=== PATIENT | male | born 1940 | race Caucasian/White ===

== ENCOUNTER → 2023-10-28 08:38 | Outpatient (REF) | payer OTHER, SELFPAY | LOC: RAD 08:38 | PROVIDERS: ATTENDING PHYSICIAN Specialist; FAMILY PHYSICIAN Internal Medicine | DX: M25.512 Pain in left shoulder (principal); M75.32 Calcific tendinitis of left shoulder; M75.42 Impingement syndrome of left shoulder | CPT/HCPCS: 76882 ==

== ENCOUNTER → 2024-05-09 09:30 | Outpatient (REF) | payer OTHER, MEDICARE, SELFPAY ==
[2024-05-09 10:38] LABS: Hematocrit 46.6 % (39.0-52.0); Mean Corp Hgb Conc. 34.3 g/dL (33.0-37.0); Mean Corpuscular Volume 98.9 fL (80.0-94.0); Mean Platelet Volume 9.7 fL (7.4-10.4); Platelet Count 186 10^3/uL (130-400); Red Blood Cell Count 4.71 10^6/uL (4.70-6.10); Red Cell Dist. Width 12.4 % (11.5-14.5); White Blood Cell Count 6.7 10^3/uL (4.8-10.8)
[2024-05-09 13:46] VITALS: BMI 25.1
== END ==
LOC: REG 09:30
PROVIDERS: ATTENDING PHYSICIAN Specialist; FAMILY PHYSICIAN Internal Medicine; OTHER PHYSICIAN Internal Medicine Cardiovascular Disease
DX: S43.012A Anterior subluxation of left humerus, initial encounter (principal)
CPT/HCPCS: 36415; 85027; 93005

== ENCOUNTER → 2024-06-28 06:28 | Outpatient (REF) | payer MEDICARE, SELFPAY | LOC: RAD 06:28 | PROVIDERS: ATTENDING PHYSICIAN Internal Medicine | DX: R31.0 Gross hematuria (principal) | CPT/HCPCS: 76770 ==

== ENCOUNTER → 2025-01-12 14:43 | Outpatient (REF) | payer MEDICARE, SELFPAY | LOC: RAD 14:43 | PROVIDERS: ATTENDING PHYSICIAN Internal Medicine | DX: R07.81 Pleurodynia (principal); M54.6 Pain in thoracic spine | CPT/HCPCS: 71101; 72072 ==